=== PATIENT | female | born 1950 | race Caucasian/White ===

== ENCOUNTER 2017-10-18 09:57 | Emergency (ER) | payer MEDICARE, BC ==
[~2017-10-18] VITALS: Ht 154.9 cm; Wt 50.0 kg
[~2017-10-18 09:57] MED LIST: CLONIDINE0.1 MG PO; DOXYCYCLINE100 M3 PO; FLAGYL500 MG PO; FOLIC ACID 11 MG/TA1 PO; K-DUR 10 MEQ T10 MEQ PO; MAALOX MAX + ANT1 ML PO; MACROBID 1100 MG/CAP PO; NEURONTIN100 MG/CAP PO; NO HOME MEDICATIONS; NO RX MEDICATIONS; NORVASC 5MG5 MG/TAB; PRILOSEC10 MG PO; PROTONIX 40MG T40 MG PO; THERAGRAN TAB1 UDTAB PO; THIAMINE 1100 MG/TAB PO; TOPROL XL 25MG25 MG PO; TOPROL XL 50MG50 MG PO; VITAMIN D 1001000 IU PO
[2017-10-18 10:23] LABS: HEMOGLOBIN 12.7 g/dl (12.5-16.0); MEAN CELL VOLUME 93 fl (80.0-100.0); MEAN CORPUSCULAR HEMOGLOBIN 34 pg (27.0-31.0); MEAN CORPUSCULAR HGB CONC 36 g/dl (33.0-37.0); MEAN PLATELET VOLUME 9.2 fl (7.4-10.4); PLATELET COUNT 345 K/mm3 (130-400); RED BLOOD COUNT 3.75 M/mm3 (4.10-5.30); REDCELL DISTRIBUTION WIDTH-CV 11.8 % (11.5-14.5)
[2017-10-18 10:25] LABS: COLLECTION METHOD CATHETER
[2017-10-18 10:29] LABS: INR 0.9 (0.8-3.0); PROTHROMBIN TIME 10.2 SECONDS (9.7-12.8)
[2017-10-18 10:32] LABS: PARTIAL THROMBOPLASTIN TIME 31.3 SECONDS (26.0-37.0)
[2017-10-18 10:37] LABS: ALANINE AMINOTRANSFERASE 27 U/L (9-52); ALBUMIN 4.5 gm/dL (3.5-5.0); ALKALINE PHOSPHATASE 114 U/L (50-136); ANION GAP 24 mmol/L (7-16); AST,SGOT 32 U/L (15-37); BILIRUBIN,TOTAL 0.9 mg/dL (0.0-1.0); BLOOD UREA NITROGEN 60 mg/dL (7-17); C-REACTIVE PROTEIN 1.5 mg/dL (0.0-0.9); CALCIUM 9.2 mg/dL (8.4-10.2); CARBON DIOXIDE 17 mmol/L (22-30); CHLORIDE 94 mmol/L (98-107); CREATININE, serum 1.76 mg/dL (0.52-1.25); GLUCOSE 222 mg/dL (74-106); LIPASE 1168 U/L (23-300); MAGNESIUM 1.9 mg/dL (1.6-2.3); PHOSPHOROUS 2.1 mg/dL (2.5-4.5); SODIUM 135 mmol/L (137-145)
[2017-10-18 10:40] LABS: HYALINE CAST >12 /lpf; MUCOUS Present /lpf; PH 5 (5-8); SQUAMOUS EPITHELIAL 0-2 /hpf; URINE APPEARANCE Hazy; URINE BACTERIA None Seen /hpf; URINE BILIRUBIN Negative (NEGATIVE); URINE BLOOD Negative (NEGATIVE); URINE COLOR Yellow; URINE GLUCOSE Negative (NEGATIVE); URINE KETONE 2+ (NEGATIVE); URINE LEUKOCYTE ESTERASE Negative (NEGATIVE); URINE NITRATE Negative (NEGATIVE); URINE PROTEIN(semi-quant) 1+ (NEGATIVE); URINE RBC 0-2 /hpf
[2017-10-18 10:42] LABS: ALCOHOL(ethanol),MEDICAL < 10 mg/dL
[2017-10-18 10:43] LABS: POTASSIUM 2.9 mmol/L (3.4-5.0)
[2017-10-18 10:45] LABS: BAND 7 % (0-10); LYMPHOCYTE 5 % (20.0-51.0); NEUTROPHILS 76 % (42.0-75.2)
[2017-10-18 10:48] LABS: HYPOCHROMIA 1+; PLATELET ESTIMATE NORMAL (NORMAL)
[2017-10-18 10:50] LABS: TROPONIN-I 0.064 ng/mL (0.000-0.034)
[2017-10-18 12:34] VITALS: BP 119/76; PULSE 106; TEMP 97.5
== END 2017-10-18 12:36 | disposition short-term general hospital (02) ==
LOC: COL.ER 09:57
PROVIDERS: Emergency Medicine
DX: E87.2 Acidosis (principal); K85.90 Acute pancreatitis without necrosis or infection, unspecified; I12.9 Hypertensive chronic kidney disease with stage 1 through stage 4 chronic kidney disease, or unspecified chronic kidney disease; N18.9 Chronic kidney disease, unspecified; R79.89 Other specified abnormal findings of blood chemistry; E87.6 Hypokalemia; F17.210 Nicotine dependence, cigarettes, uncomplicated
CPT/HCPCS: C9113; J2405; J3411; J3480; J7030

== ENCOUNTER 2017-10-21 16:50 | Inpatient (IN) | payer MEDICARE, BC ==
[~2017-10-21] VITALS: Ht 154.9 cm; Wt 52.6 kg
[2017-10-21 17:38] VITALS: BP 172/94; PULSE 90; TEMP 97.7
[2017-10-21] MEDS ORDERED: 00186-0372-20 IH (18:01)
[2017-10-21] MEDS ORDERED: FOLIC ACID 11 MG/TA1 PO (18:02)
[2017-10-21] MEDS ORDERED: TOPROL XL 50MG50 MG PO (18:03)
[2017-10-21] MEDS ORDERED: PROTONIX 40MG T40 MG PO (18:04)
[2017-10-21] MEDS ORDERED: PHOS-NAK1 PDR PO (18:07)
[2017-10-21] MEDS ORDERED: NATURE'S BLEND100 M2 PO (18:08)
[2017-10-22 04:59] VITALS: BP 144/90; PULSE 94; TEMP 97.9
[2017-10-22 06:00] VITALS: BP 144/90; PULSE 94; TEMP 97.9
[2017-10-22 15:53] LABS: BILIRUBIN,TOTAL 0.2 mg/dL (0.0-1.0); CALCIUM 9.1 mg/dL (8.4-10.2); CREATININE, serum 0.93 mg/dL (0.52-1.25); POTASSIUM 3.1 mmol/L (3.4-5.0); TOTAL PROTEIN 7.3 gm/dL (6.4-8.2)
[2017-10-22 16:11] VITALS: BP 111/69; PULSE 98; TEMP 98.3
[2017-10-23 06:00] VITALS: BP 110/66; PULSE 92; TEMP 98.5
[2017-10-23 16:59] VITALS: BP 90/65; PULSE 52; TEMP 97.9
[2017-10-24 05:06] VITALS: BP 102/66; PULSE 90; TEMP 98
[2017-10-24 15:41] VITALS: BP 95/61; PULSE 85; TEMP 98.2
[2017-10-25 06:30] VITALS: BP 97/61; PULSE 80; TEMP 97.5
[2017-10-25 07:05] LABS: BASO % 0.5 % (0.0-2.0); EOS # 0.1 (0.0-0.7); EOS % 1.5 % (0-4.0); GRAN # 2.5 (1.4-6.5); GRAN % 42.1 % (42.2-75.2); HEMATOCRIT 27.9 % (37.0-47.0); HEMOGLOBIN 9.3 g/dl (12.5-16.0); LYMPH # 2.5 (1.2-3.4); MEAN CELL VOLUME 100 fl (80.0-100.0); MEAN CORPUSCULAR HEMOGLOBIN 33 pg (27.0-31.0); MEAN CORPUSCULAR HGB CONC 33 g/dl (33.0-37.0); MEAN PLATELET VOLUME 10.2 fl (7.4-10.4); MONO # 0.8 (0.1-0.6); MONO % 13.4 % (1.7-9.3); PLATELET COUNT 308 K/mm3 (130-400); RED BLOOD COUNT 2.79 M/mm3 (4.10-5.30); REDCELL DISTRIBUTION WIDTH-CV 12.3 % (11.5-14.5)
[2017-10-25 07:21] LABS: ALANINE AMINOTRANSFERASE 29 U/L (9-52); ALBUMIN 3.1 gm/dL (3.5-5.0); ALKALINE PHOSPHATASE 69 U/L (50-136); ANION GAP 8 mmol/L (7-16); AST,SGOT 26 U/L (15-37); BILIRUBIN,TOTAL < 0.1 mg/dL (0.0-1.0); BLOOD UREA NITROGEN 15 mg/dL (7-17); CALCIUM 8.3 mg/dL (8.4-10.2); CARBON DIOXIDE 34 mmol/L (22-30); CHLORIDE 90 mmol/L (98-107); CREATININE, serum 0.74 mg/dL (0.52-1.25); GLUCOSE 90 mg/dL (74-106); POTASSIUM 3.3 mmol/L (3.4-5.0); SODIUM 132 mmol/L (137-145); TOTAL PROTEIN 5.8 gm/dL (6.4-8.2)
[2017-10-25 07:51] LABS: MAGNESIUM 1.3 mg/dL (1.6-2.3); PHOSPHOROUS 5.2 mg/dL (2.5-4.5)
[2017-10-25 14:05] VITALS: BP 99/63; PULSE 70; TEMP 97.6
[2017-10-25 14:25] VITALS: BP 98/58; PULSE 66; TEMP 97.8
[2017-10-25 15:07] VITALS: BP 98/65; PULSE 93; TEMP 97.5
[2017-10-25 16:13] VITALS: BP 96/58; PULSE 96; TEMP 98.2
[2017-10-25 17:34] VITALS: BP 127/77; PULSE 99; TEMP 98.5
[2017-10-26 05:58] VITALS: BP 114/67; PULSE 81; TEMP 97.5
[2017-10-26 15:16] VITALS: BP 121/70; PULSE 91; TEMP 98.2
[2017-10-27 04:47] VITALS: BP 133/84; PULSE 81; TEMP 98.1
[2017-10-27 06:42] LABS: CALCIUM 9.2 mg/dL (8.4-10.2); CREATININE, serum 0.75 mg/dL (0.52-1.25); HEMATOCRIT 27.8 % (37.0-47.0); HEMOGLOBIN 9.3 g/dl (12.5-16.0); MAGNESIUM 1.9 mg/dL (1.6-2.3); POTASSIUM 3.5 mmol/L (3.4-5.0)
[2017-10-27 17:39] VITALS: BP 122/74; PULSE 101; TEMP 98.9
[2017-10-28 05:17] VITALS: BP 113/72; PULSE 98; TEMP 98.2
[2017-10-28 18:20] VITALS: BP 133/79; PULSE 98; TEMP 98.1
[2017-10-29 05:12] VITALS: BP 118/71; PULSE 86; TEMP 98.4
[2017-10-29] MEDS ORDERED: TOPROL XL 25MG25 MG PO (09:38)
[2017-10-29] MEDS ORDERED: TYLENOL 325MG325 MG PO (09:38)
[2017-10-29] MEDS ORDERED: K-DUR20 MEQ PO (09:39)
[2017-10-29] MEDS ORDERED: MAG-OX 400400 MG/TAB PO (09:40)
[2017-10-29] MEDS ORDERED: COLACE 100100 MG/CAP PO (09:40)
== END 2017-10-29 12:30 | DRG 947 ==
PROVIDERS: Internal Medicine
DX: R53.81 Other malaise (principal); K85.20 Alcohol induced acute pancreatitis without necrosis or infection; K22.10 Ulcer of esophagus without bleeding; E44.0 Moderate protein-calorie malnutrition; D62 Acute posthemorrhagic anemia; I10 Essential (primary) hypertension; J44.9 Chronic obstructive pulmonary disease, unspecified; F17.210 Nicotine dependence, cigarettes, uncomplicated; F10.20 Alcohol dependence, uncomplicated; E87.6 Hypokalemia; E83.42 Hypomagnesemia; E83.39 Other disorders of phosphorus metabolism
CPT/HCPCS: 99222-AI; 99232-AI; 99239; J3475

== ENCOUNTER → 2017-11-01 | Outpatient (REF) ==
[~2017-11-01] MED LIST changes: +00186-0372-20 IH; +COLACE 100100 MG/CAP PO; +K-DUR20 MEQ PO; +MAG-OX 400400 MG/TAB PO; +NATURE'S BLEND100 M2 PO; +PHOS-NAK1 PDR PO; +TYLENOL 325MG325 MG PO
[2017-11-01 09:45] LABS: BASO # 0.1 (0.0-0.2); BASO % 0.8 % (0.0-2.0); EOS # 0.1 (0.0-0.7); EOS % 1.9 % (0-4.0); GRAN # 4.7 (1.4-6.5); GRAN % 65.7 % (42.2-75.2); LYMPH # 1.7 (1.2-3.4); LYMPH % 22.9 % (20.0-51.0); MEAN CELL VOLUME 101 fl (80.0-100.0); MEAN CORPUSCULAR HGB CONC 33 g/dl (33.0-37.0); MEAN PLATELET VOLUME 10.1 fl (7.4-10.4); MONO # 0.6 (0.1-0.6); MONO % 8.6 % (1.7-9.3); PLATELET COUNT 402 K/mm3 (130-400); RED BLOOD COUNT 2.78 M/mm3 (4.10-5.30); REDCELL DISTRIBUTION WIDTH-CV 12.4 % (11.5-14.5)
[2017-11-01 09:46] LABS: HEMOGLOBIN 9.2 g/dl (12.5-16.0); MEAN CORPUSCULAR HEMOGLOBIN 33 pg (27.0-31.0)
[2017-11-01 09:57] LABS: CALCIUM 8.8 mg/dL (8.4-10.2); CREATININE, serum 0.74 mg/dL (0.52-1.25); MAGNESIUM 1.8 mg/dL (1.6-2.3); PHOSPHOROUS 4.2 mg/dL (2.5-4.5); POTASSIUM 4.9 mmol/L (3.4-5.0)
[2017-11-02 14:25] LABS: ALBUMIN 3.3 gm/dL (3.5-5.0); BILIRUBIN,TOTAL 0.1 mg/dL (0.0-1.0); TOTAL PROTEIN 6.5 gm/dL (6.4-8.2)
== END ==
LOC: ZLAB.STJ 09:29
PROVIDERS: Family Medicine
DX: E61.2 Magnesium deficiency (principal); R79.89 Other specified abnormal findings of blood chemistry; R68.89 Other general symptoms and signs

== ENCOUNTER 2017-11-22 11:00 | Inpatient (IN) | payer MEDICARE, BC ==
[2017-11-22] VITALS (9 sets, daily range): BP systolic 96–159; BP diastolic 65–95; PULSE 93–110; TEMP 97–97.8
[~2017-11-22] VITALS: Ht 154.9 cm; Wt 49.8 kg
[2017-11-22 11:42] LABS: BASO % 0.1 % (0.0-2.0); EOS % 0.2 % (0-4.0); GRAN # 14.7 (1.4-6.5); GRAN % 85.8 % (42.2-75.2); HEMATOCRIT 39.3 % (37.0-47.0); HEMOGLOBIN 13.4 g/dl (12.5-16.0); LYMPH % 5.7 % (20.0-51.0); MEAN CELL VOLUME 95 fl (80.0-100.0); MEAN CORPUSCULAR HEMOGLOBIN 32 pg (27.0-31.0); MEAN CORPUSCULAR HGB CONC 34 g/dl (33.0-37.0); MEAN PLATELET VOLUME 9.9 fl (7.4-10.4); MONO # 1.3 (0.1-0.6); MONO % 7.5 % (1.7-9.3); PLATELET COUNT 495 K/mm3 (130-400); RED BLOOD COUNT 4.14 M/mm3 (4.10-5.30); REDCELL DISTRIBUTION WIDTH-CV 12.5 % (11.5-14.5)
[2017-11-22 11:47] LABS: BILIRUBIN,TOTAL 0.7 mg/dL (0.0-1.0); C-REACTIVE PROTEIN 0.9 mg/dL (0.0-0.9); CALCIUM 8.4 mg/dL (8.4-10.2); CREATININE, serum 2.53 mg/dL (0.52-1.25); POTASSIUM 3.8 mmol/L (3.4-5.0)
[2017-11-22 12:24] LABS: ARTERIAL BLD GAS O2 SATURATION 95.1 % (92-100); ARTERIAL BLD GAS TCO2 CT 16.9; ARTERIAL BLOOD GAS BASE EXCESS -6.8 (-2-2); ARTERIAL BLOOD GAS HCO3 16.1 meq/L (22-26); ARTERIAL BLOOD GAS PCO2 25.4 mmHg (35-45); ARTERIAL BLOOD GAS PO2 82.5 mmHg (80-100); ARTERIAL BLOOD GAS pH 7.42 (7.35-7.45)
[2017-11-22 12:51] LABS: COLLECTION METHOD CLEAN CATCH
[2017-11-22 13:04] LABS: HYALINE CAST >12 /lpf; MUCOUS Present /lpf; PH 5 (5-8); URINE APPEARANCE Hazy; URINE BACTERIA Rare /hpf; URINE BILIRUBIN Negative (NEGATIVE); URINE BLOOD Negative (NEGATIVE); URINE COLOR Yellow; URINE GLUCOSE Negative (NEGATIVE); URINE KETONE 2+ (NEGATIVE); URINE LEUKOCYTE ESTERASE Trace (NEGATIVE); URINE NITRATE Negative (NEGATIVE); URINE PROTEIN(semi-quant) 1+ (NEGATIVE); URINE RBC 0-2 /hpf; URINE UROBILINOGEN Negative (NEGATIVE)
[2017-11-22 13:37] LABS: TRICYCLIC ANTIDEPRESS URINE NEGATIVE
[2017-11-22] MEDS ORDERED: MULTI VITAMINS1 TAB PO (14:18)
[2017-11-22 15:58] LABS: PROTHROMBIN TIME 10.8 SECONDS (9.7-12.8)
[2017-11-22 16:01] LABS: PARTIAL THROMBOPLASTIN TIME 33.5 SECONDS (26.0-37.0)
[2017-11-22 16:02] LABS: MAGNESIUM 1.7 mg/dL (1.6-2.3)
[2017-11-22 16:03] LABS: ALCOHOL(ethanol),MEDICAL < 10 mg/dL
[2017-11-22 18:17] LABS: CREATININE, serum 1.26 mg/dL (0.52-1.25)
[2017-11-22 18:18] LABS: CALCIUM 5.7 mg/dL (8.4-10.2); POTASSIUM 2.5 mmol/L (3.4-5.0)
[2017-11-22 19:14] LABS: ALBUMIN 3.8 gm/dL (3.5-5.0); BILIRUBIN,TOTAL 0.5 mg/dL (0.0-1.0); CALCIUM 6.7 mg/dL (8.4-10.2); CREATININE, serum 1.38 mg/dL (0.52-1.25); TOTAL PROTEIN 6.8 gm/dL (6.4-8.2)
[2017-11-22 19:17] LABS: POTASSIUM 2.9 mmol/L (3.4-5.0)
[2017-11-22 20:35] LABS: MAGNESIUM 1.7 mg/dL (1.6-2.3); PHOSPHOROUS 3.9 mg/dL (2.5-4.5)
[2017-11-23] VITALS (12 sets, daily range): BP systolic 105–174; BP diastolic 50–109; PULSE 69–111; TEMP 97–99
[2017-11-23 04:04] LABS: MEAN CELL VOLUME 96 fl (80.0-100.0); MEAN CORPUSCULAR HGB CONC 34 g/dl (33.0-37.0); MEAN PLATELET VOLUME 9.7 fl (7.4-10.4); RED BLOOD COUNT 3.48 M/mm3 (4.10-5.30); REDCELL DISTRIBUTION WIDTH-CV 12.7 % (11.5-14.5)
[2017-11-23 04:06] LABS: HEMATOCRIT 33.4 % (37.0-47.0); HEMOGLOBIN 11.2 g/dl (12.5-16.0); MEAN CORPUSCULAR HEMOGLOBIN 32 pg (27.0-31.0)
[2017-11-23 04:07] LABS: PLATELET COUNT 290 K/mm3 (130-400)
[2017-11-23 04:15] LABS: ALBUMIN 3.8 gm/dL (3.5-5.0); BILIRUBIN,TOTAL 0.5 mg/dL (0.0-1.0); CALCIUM 8.3 mg/dL (8.4-10.2); CREATININE, serum 1.07 mg/dL (0.52-1.25); MAGNESIUM 2.2 mg/dL (1.6-2.3); POTASSIUM 3.6 mmol/L (3.4-5.0)
[2017-11-23 04:24] LABS: BAND 8 % (0-10); LYMPHOCYTE 14 % (20.0-51.0); NEUTROPHILS 70 % (42.0-75.2)
[2017-11-23 04:25] LABS: PLATELET ESTIMATE NORMAL (NORMAL)
[2017-11-23 04:30] LABS: CREATININE, serum 1.07 mg/dL (0.52-1.25); FRACTIONAL EXCRETION OF NA+ 6.8 %
[2017-11-24] VITALS (7 sets, daily range): BP systolic 117–142; BP diastolic 58–79; PULSE 65–100; TEMP 98.1–98.9
[2017-11-24 06:06] LABS: BASO # 0.1 (0.0-0.2); BASO % 0.9 % (0.0-2.0); EOS # 0.1 (0.0-0.7); EOS % 1.3 % (0-4.0); GRAN # 2.5 (1.4-6.5); GRAN % 46.6 % (42.2-75.2); LYMPH # 2.2 (1.2-3.4); LYMPH % 39.7 % (20.0-51.0); MEAN CELL VOLUME 96 fl (80.0-100.0); MEAN CORPUSCULAR HGB CONC 34 g/dl (33.0-37.0); MEAN PLATELET VOLUME 10.2 fl (7.4-10.4); MONO # 0.6 (0.1-0.6); MONO % 11.3 % (1.7-9.3); PLATELET COUNT 216 K/mm3 (130-400); RED BLOOD COUNT 2.77 M/mm3 (4.10-5.30); REDCELL DISTRIBUTION WIDTH-CV 12.2 % (11.5-14.5)
[2017-11-24 06:21] LABS: HEMATOCRIT 26.5 % (37.0-47.0); MEAN CORPUSCULAR HEMOGLOBIN 32 pg (27.0-31.0)
[2017-11-24 06:23] LABS: CALCIUM 8.1 mg/dL (8.4-10.2); CREATININE, serum 0.64 mg/dL (0.52-1.25)
[2017-11-24 06:29] LABS: POTASSIUM 2.8 mmol/L (3.4-5.0)
[2017-11-24] MEDS ORDERED: ZOFRAN 4MG T4 MG/TAB PO (15:39)
[2017-11-24] MEDS ORDERED: TUMS500 MG PO (15:40)
[2017-11-24] MEDS ORDERED: PROTONIX 40MG T40 MG PO (15:41)
[2017-11-24] MEDS ORDERED: NATURAL IRON65 MG PO (15:46)
[2017-11-24] MEDS ORDERED: K-DUR20 MEQ PO (15:46)
[2017-11-24] MEDS ORDERED: THIAMINE 1100 MG/TAB PO (15:46)
== END 2017-11-24 16:53 | DRG 682 ==
LOC: COL.ER 11:00 → ICU 13:03 → MEDICAL 13:03
PROVIDERS: Family Medicine; Hospitalist; Internal Medicine Gastroenterology; Nurse Practitioner Family
PROC: 0DJ08ZZ Inspection of Upper Intestinal Tract, Via Natural or Artificial Opening Endoscopic (ICD-10-PCS; principal; 2017-11-22 16:00)
DX: N17.9 Acute kidney failure, unspecified (principal); K22.11 Ulcer of esophagus with bleeding; E87.2 Acidosis; E44.0 Moderate protein-calorie malnutrition; Z66 Do not resuscitate; I10 Essential (primary) hypertension; K21.0 Gastro-esophageal reflux disease with esophagitis; F17.210 Nicotine dependence, cigarettes, uncomplicated; E87.6 Hypokalemia; F10.10 Alcohol abuse, uncomplicated; E83.42 Hypomagnesemia; E83.51 Hypocalcemia; K29.20 Alcoholic gastritis without bleeding
CPT/HCPCS: 99223-AI; C9113; J0610; J2250; J2405; J2543; J3010; J3475; J3480; J7030; J7120

== ENCOUNTER → 2017-11-26 | Outpatient (REF) ==
[~2017-11-26] MED LIST changes: +MULTI VITAMINS1 TAB PO; +NATURAL IRON65 MG PO; +TUMS500 MG PO; +ZOFRAN 4MG T4 MG/TAB PO
[2017-11-26 09:33] LABS: BASO % 0.5 % (0.0-2.0); EOS # 0.2 (0.0-0.7); EOS % 2.1 % (0-4.0); GRAN # 3.8 (1.4-6.5); LYMPH # 2.6 (1.2-3.4); LYMPH % 34.1 % (20.0-51.0); MEAN CELL VOLUME 95 fl (80.0-100.0); MEAN CORPUSCULAR HGB CONC 34 g/dl (33.0-37.0); MEAN PLATELET VOLUME 10.6 fl (7.4-10.4); MONO # 0.9 (0.1-0.6); MONO % 11.9 % (1.7-9.3); PLATELET COUNT 304 K/mm3 (130-400); RED BLOOD COUNT 3.53 M/mm3 (4.10-5.30); REDCELL DISTRIBUTION WIDTH-CV 12.1 % (11.5-14.5)
[2017-11-26 09:34] LABS: HEMATOCRIT 33.5 % (37.0-47.0); HEMOGLOBIN 11.5 g/dl (12.5-16.0); MEAN CORPUSCULAR HEMOGLOBIN 33 pg (27.0-31.0)
[2017-11-26 09:41] LABS: CREATININE, serum 0.69 mg/dL (0.52-1.25); POTASSIUM 4.1 mmol/L (3.4-5.0)
== END ==
LOC: ZLAB.STJ 09:27
PROVIDERS: Family Medicine
DX: E87.6 Hypokalemia (principal); I10 Essential (primary) hypertension

== ENCOUNTER → 2018-02-07 | Outpatient (CLI) | payer MEDICARE, BC ==
[2018-02-07 12:13] LABS: COLLECTION METHOD CLEAN CATCH
[2018-02-07 12:24] LABS: BASO # 0.1 (0.0-0.2); BASO % 1.2 % (0.0-2.0); EOS # 0.1 (0.0-0.7); EOS % 2.7 % (0-4.0); GRAN # 1.8 (1.4-6.5); HEMATOCRIT 39.5 % (37.0-47.0); HEMOGLOBIN 13.5 g/dl (12.5-16.0); LYMPH # 1.8 (1.2-3.4); LYMPH % 44.2 % (20.0-51.0); MEAN CELL VOLUME 92 fl (80.0-100.0); MEAN CORPUSCULAR HEMOGLOBIN 32 pg (27.0-31.0); MEAN CORPUSCULAR HGB CONC 34 g/dl (33.0-37.0); MEAN PLATELET VOLUME 10.1 fl (7.4-10.4); MONO # 0.4 (0.1-0.6); MONO % 8.7 % (1.7-9.3); PLATELET COUNT 281 K/mm3 (130-400); RED BLOOD COUNT 4.29 M/mm3 (4.10-5.30); REDCELL DISTRIBUTION WIDTH-CV 12.2 % (11.5-14.5)
[2018-02-07 12:26] LABS: MUCOUS Present /lpf; PH 6 (5-8); URINE APPEARANCE Clear; URINE BACTERIA Rare /hpf; URINE BILIRUBIN Negative (NEGATIVE); URINE BLOOD Negative (NEGATIVE); URINE COLOR Straw; URINE GLUCOSE Negative (NEGATIVE); URINE KETONE Negative (NEGATIVE); URINE LEUKOCYTE ESTERASE Negative (NEGATIVE); URINE NITRATE Negative (NEGATIVE); URINE PROTEIN(semi-quant) Negative (NEGATIVE); URINE RBC None Seen /hpf; URINE UROBILINOGEN Negative (NEGATIVE)
[2018-02-07 12:36] LABS: ALBUMIN 4.5 gm/dL (3.5-5.0); BILIRUBIN,TOTAL 0.2 mg/dL (0.0-1.0); CALCIUM 9.2 mg/dL (8.4-10.2); CREATININE, serum 0.76 mg/dL (0.52-1.25); POTASSIUM 4.3 mmol/L (3.4-5.0); TOTAL PROTEIN 8.2 gm/dL (6.4-8.2)
== END ==
LOC: ZLAB.STJ 12:07
PROVIDERS: Family Medicine
DX: I10 Essential (primary) hypertension (principal); D64.9 Anemia, unspecified; R35.0 Frequency of micturition

== ENCOUNTER → 2018-07-08 | Outpatient (CLI) | payer MEDICARE, BC | LOC: COL.RAD 09:11 | DX: R94.5 Abnormal results of liver function studies (principal) ==

== ENCOUNTER → 2018-07-18 | Outpatient (CLI) | payer MEDICARE, BC | LOC: COL.RAD 08:46 | DX: R74.8 Abnormal levels of other serum enzymes (principal) | CPT/HCPCS: A9503 ==

== ENCOUNTER 2019-05-12 14:32 | Emergency (ER) | payer MEDICARE, BC ==
[~2019-05-12] VITALS: Ht 154.9 cm; Wt 50.0 kg
[~2019-05-12 14:32] MED LIST changes: +KLOR-CON M1010 MEQ PO; +METOPROL; +NORVASC 5MG5 MG/TAB PO; +TOBRADEX EYE DRO5 ML OD
[2019-05-12 16:22] LABS: BASO # 0.1 (0.0-0.2); BASO % 0.8 % (0.0-2.0); EOS # 0.1 (0.0-0.7); EOS % 1.3 % (0-4.0); GRAN # 3.8 (1.4-6.5); LYMPH # 1.8 (1.2-3.4); LYMPH % 28.1 % (20.0-51.0); MEAN CELL VOLUME 101 fl (80.0-100.0); MEAN CORPUSCULAR HEMOGLOBIN 35 pg (27.0-31.0); MEAN CORPUSCULAR HGB CONC 35 g/dl (33.0-37.0); MONO # 0.7 (0.1-0.6); MONO % 10.6 % (1.7-9.3); PLATELET COUNT 244 K/mm3 (130-400); RED BLOOD COUNT 3.43 M/mm3 (4.10-5.30)
[2019-05-12 16:30] LABS: HEMATOCRIT 34.7 % (37.0-47.0)
[2019-05-12 16:34] LABS: ALANINE AMINOTRANSFERASE 41 U/L (9-52); ALKALINE PHOSPHATASE 194 U/L (50-136); ANION GAP 12 mmol/L (7-16); AST,SGOT 82 U/L (15-37); BILIRUBIN,TOTAL 0.7 mg/dL (0.0-1.0); BLOOD UREA NITROGEN 8 mg/dL (7-17); CALCIUM 8.4 mg/dL (8.4-10.2); CARBON DIOXIDE 28 mmol/L (22-30); CHLORIDE 96 mmol/L (98-107); CREATINE KINASE 45 U/L (30-135); CREATININE, serum 0.78 (0.52-1.25); GLUCOSE 97 mg/dL (74-106); MAGNESIUM 1.2 mg/dL (1.6-2.3); PHOSPHOROUS 3.1 mg/dL (2.5-4.5); SODIUM 136 mmol/L (137-145); TOTAL PROTEIN 7.4 gm/dL (6.4-8.2)
[2019-05-12 16:37] LABS: ALCOHOL(ethanol),MEDICAL < 10 mg/dL; C-REACTIVE PROTEIN 0.5 mg/dL (0.0-0.9); POTASSIUM 2.8 mmol/L (3.4-5.0)
[2019-05-12 16:39] LABS: COLLECTION METHOD CLEAN CATCH
[2019-05-12 16:53] LABS: ERYTHROCYTE SEDIMENTATION RATE 26 mm/hr (0-30)
[2019-05-12 17:09] LABS: PH 7 (5-8); URINE APPEARANCE Clear; URINE BACTERIA Rare /hpf; URINE BILIRUBIN Negative (NEGATIVE); URINE BLOOD Negative (NEGATIVE); URINE COLOR Yellow; URINE GLUCOSE Negative (NEGATIVE); URINE KETONE Negative (NEGATIVE); URINE LEUKOCYTE ESTERASE Negative (NEGATIVE); URINE NITRATE Negative (NEGATIVE); URINE PROTEIN(semi-quant) Negative (NEGATIVE); URINE RBC 0-2 /hpf; URINE UROBILINOGEN Negative (NEGATIVE)
[2019-05-12] MEDS ORDERED: MAG-OX 400400 MG/TAB PO (17:51)
[2019-05-12] MEDS ORDERED: K-DUR20 MEQ PO (17:51)
[2019-05-12 18:13] VITALS: BP 140/88; PULSE 77; TEMP 98
== END 2019-05-12 18:22 | disposition home or self-care (01) ==
LOC: COL.ER 14:32
PROVIDERS: Emergency Medicine
DX: E87.6 Hypokalemia (principal); E83.42 Hypomagnesemia; R53.1 Weakness
CPT/HCPCS: J7030

== ENCOUNTER → 2019-07-24 | Outpatient (CLI) | payer MEDICARE, BC ==
[2019-07-24 16:56] LABS: BASO # 0.1 (0.0-0.2); BASO % 0.7 % (0.0-2.0); EOS % 0.1 % (0-4.0); GRAN # 6.1 (1.4-6.5); GRAN % 81.8 % (42.2-75.2); HEMOGLOBIN 10.6 g/dl (12.5-16.0); LYMPH # 0.5 (1.2-3.4); LYMPH % 7.2 % (20.0-51.0); MEAN CELL VOLUME 100 fl (80.0-100.0); MEAN CORPUSCULAR HEMOGLOBIN 34 pg (27.0-31.0); MEAN CORPUSCULAR HGB CONC 34 g/dl (33.0-37.0); MEAN PLATELET VOLUME 9.9 fl (7.4-10.4); MONO # 0.7 (0.1-0.6); MONO % 9.5 % (1.7-9.3); PLATELET COUNT 297 K/mm3 (130-400); RED BLOOD COUNT 3.09 M/mm3 (4.10-5.30); REDCELL DISTRIBUTION WIDTH-CV 14.5 % (11.5-14.5)
[2019-07-24 16:57] LABS: HEMATOCRIT 30.9 % (37.0-47.0)
[2019-07-24 17:11] LABS: ALBUMIN 3.6 gm/dL (3.5-5.0); CALCIUM 8.8 mg/dL (8.4-10.2); CREATININE, serum 1.81 (0.52-1.25); MAGNESIUM 1.5 mg/dL (1.6-2.3); POTASSIUM 3.9 mmol/L (3.4-5.0); TOTAL PROTEIN 6.8 gm/dL (6.4-8.2)
== END ==
LOC: ZCOL.LAB 16:25
PROVIDERS: Internal Medicine
DX: E86.0 Dehydration (principal)

== ENCOUNTER → 2019-08-07 | Outpatient (CLI) | payer MEDICARE, BC | LOC: ZCOL.LAB 14:28 | DX: E83.42 Hypomagnesemia (principal) ==

== ENCOUNTER → 2020-07-16 | Outpatient (CLI) | payer MEDICARE, BC ==
[~2020-07-16] MED LIST changes: +CEPHALEXIN500 M1 PO; +COZAAR 50MG50 MG/TAB PO; +DUO-KAPS1 CAP PO; +K-TAB20 PO
[2020-07-16 17:12] LABS: ALBUMIN 4.5 gm/dL (3.5-5.0); BILIRUBIN,TOTAL 0.8 mg/dL (0.0-1.0); CALCIUM 9.5 mg/dL (8.4-10.2); CREATININE, serum 0.95 (0.52-1.25); POTASSIUM 4.6 mmol/L (3.4-5.0); TOTAL PROTEIN 8.4 gm/dL (6.4-8.2)
== END ==
LOC: ZCOL.LAB 15:09
PROVIDERS: Family Medicine
DX: E87.1 Hypo-osmolality and hyponatremia (principal); F10.288 Alcohol dependence with other alcohol-induced disorder

== ENCOUNTER 2020-07-20 21:55 | Observation (INO) | payer MEDICARE, BC ==
[~2020-07-20] VITALS: Ht 154.9 cm; Wt 56.8 kg
[~2020-07-20 21:55] MED LIST changes: -CEPHALEXIN500 M1 PO; -COZAAR 50MG50 MG/TAB PO; -DUO-KAPS1 CAP PO; -K-TAB20 PO
[2020-07-20 22:31] LABS: BASO % 0.1 % (0.0-2.0); EOS % 0.1 % (0-4.0); GRAN # 5.9 (1.4-6.5); GRAN % 78.1 % (42.2-75.2); HEMATOCRIT 41.3 % (37.0-47.0); HEMOGLOBIN 13.8 g/dl (12.5-16.0); LYMPH # 0.7 (1.2-3.4); MEAN CELL VOLUME 97 fl (80.0-100.0); MEAN CORPUSCULAR HEMOGLOBIN 32 pg (27.0-31.0); MEAN CORPUSCULAR HGB CONC 33 g/dl (33.0-37.0); MEAN PLATELET VOLUME 10.2 fl (7.4-10.4); MONO % 12.6 % (1.7-9.3); PLATELET COUNT 230 K/mm3 (130-400); RED BLOOD COUNT 4.26 M/mm3 (4.10-5.30); REDCELL DISTRIBUTION WIDTH-CV 12.9 % (11.5-14.5)
[2020-07-20 22:42] LABS: ALBUMIN 5.1 gm/dL (3.5-5.0); BILIRUBIN,TOTAL 0.8 mg/dL (0.0-1.0); CALCIUM 9.9 mg/dL (8.4-10.2); CREATININE, serum 1.15 (0.52-1.25); POTASSIUM 4.2 mmol/L (3.4-5.0); TOTAL PROTEIN 9.7 gm/dL (6.4-8.2)
[2020-07-20 23:02] LABS: COLLECTION METHOD CLEAN CATCH
[2020-07-20 23:13] LABS: PH 6 (5-8); URINE APPEARANCE Cloudy; URINE BACTERIA Many /hpf; URINE BILIRUBIN Negative (NEGATIVE); URINE BLOOD 1+ (NEGATIVE); URINE COLOR Yellow; URINE GLUCOSE Negative (NEGATIVE); URINE KETONE 2+ (NEGATIVE); URINE LEUKOCYTE ESTERASE 2+ (NEGATIVE); URINE NITRATE Negative (NEGATIVE); URINE PROTEIN(semi-quant) 1+ (NEGATIVE); URINE UROBILINOGEN Negative (NEGATIVE)
[2020-07-21] VITALS (13 sets, daily range): BP systolic 90–149; BP diastolic 46–96; PULSE 74–116; TEMP 97.5–98.9
--- NOTE | 2020-07-21 01:45 | NUR ---
Patient snoring, respirations even and unlabored @16 per minute, recieved ativan in ED- patient is asleep and unable to answer questions at this time, received updated med list from [facility], telemetry in use, CIWA protocol in use, VS stable, will continue to monitor.
[2020-07-21] MEDS ORDERED: COZAAR 50MG50 MG/TAB PO (03:11)
[2020-07-21] MEDS ORDERED: TYLENOL 325MG325 MG PO (03:12)
[2020-07-21] MEDS ORDERED: ZOFRAN 4MG T4 MG/TAB PO (03:13)
--- NOTE | 2020-07-21 06:22 | NUR ---
Resting quietly, respirations even and unlabored, will awaken with verbal stimuli but quickly falls back asleep, aware, CIWA protocol continues, VS stable, telemetry in use, will continue to monitor.
--- NOTE | 2020-07-21 08:58 | NUR ---
IV FLUIDS INFUSING, PT AOX4, STEADY ON HER FEET, REPORTS USING A WALKER AT [facility], DID NOT REQUIRE ATIVAN FOR 0800 EVALUATION, PT CALL LIGHT WITHIN REACH, DRANK HER BROTH AND DENIED N/V. BOTH IV SITES CDI W/O ERYTHEMA, BED ALARM SET, PT VERY PLEASANT, NO OTHER NEEDS
--- NOTE | 2020-07-21 09:56 | NUR ---
Patient used call light to get assistance going to the bathroom. She was a little unsteady, but did not complain of any pain. After care she went back to lay in bed.
--- NOTE | 2020-07-21 10:04 | NUR ---
Patient is laying in bed, free of pain or distress. She did ask for her phone so that she could speak with her children. Patient cell phone was retrieved out of her bag. She did not have any further request at this time.
--- NOTE | 2020-07-21 11:34 | NUR ---
SW met with patient to conduct intake evaluation. Patient lives at [facility] alone. Her DPOAs are Unruly Hancock (P# [phone]) and Harsh Glover (P# [phone]). Patient's PCP is Dr. Callejas, and she uses [facility] for medications. Patient requires no assistance with ADLS and uses a walker for mobility. Patient denies concerns affording medication. Patient plans to return to [facility] when discharged. Please fax record updates to [facility]. DEWAYNE will continue to follow.
--- NOTE | 2020-07-21 17:37 | NUR ---
PT PLEASANT, AOX4, HAS NOT BEEN SCORING SINCE EARLY IN AM, PT HAS A STEADY GAIT WITH A WALKER, USES CALL LIGHT WHEN NEEDING TO GET UP, PT EAGER FOR DISCHARGE, IV FLUIDS INFUSING, CALL LIGHT AT BEDSIDE, PT TOLERATING CLD WELL, NO N/V. NO OTHER NEEDS.
--- NOTE | 2020-07-21 19:22 | NUR ---
Awake, alert, oriented x 4, CIWA protocol in use, call renner w/i reach, ambulating in room w/o issue, telemetry in use running SR, tolerating clear liquid diet. updated on plan of care
[2020-07-22 01:53] VITALS: BP 120/79; PULSE 92; TEMP 98
[2020-07-22 04:01] VITALS: BP 116/70; PULSE 79; TEMP 97.7
[2020-07-22 05:34] VITALS: BP 132/81; PULSE 86; TEMP 98.1
--- NOTE | 2020-07-22 06:00 | NUR ---
Resting quietly, no c/o at this time, will continue to monitor.
[2020-07-22 07:44] LABS: BASO # 0.1 (0.0-0.2); BASO % 0.7 % (0.0-2.0); EOS # 0.1 (0.0-0.7); EOS % 1.2 % (0-4.0); GRAN # 3.6 (1.4-6.5); GRAN % 53.6 % (42.2-75.2); LYMPH # 2.4 (1.2-3.4); LYMPH % 35.9 % (20.0-51.0); MEAN CELL VOLUME 101 fl (80.0-100.0); MEAN CORPUSCULAR HEMOGLOBIN 32 pg (27.0-31.0); MEAN CORPUSCULAR HGB CONC 32 g/dl (33.0-37.0); MEAN PLATELET VOLUME 10.6 fl (7.4-10.4); MONO # 0.6 (0.1-0.6); MONO % 8.5 % (1.7-9.3); PLATELET COUNT 161 K/mm3 (130-400); RED BLOOD COUNT 3.65 M/mm3 (4.10-5.30); REDCELL DISTRIBUTION WIDTH-CV 12.6 % (11.5-14.5)
[2020-07-22 07:57] VITALS: BP 124/75; PULSE 77; TEMP 98.1
--- NOTE | 2020-07-22 07:58 | NUR ---
PT SEEMS FRUSTRATED WITH BEING IN HOSPITAL IN AM, AOX4, PT DRINKING BROTH WHEN ENTERING, NO TREMORS OR DIAPHORESIS NOTED, NO OTHER NEEDS
[2020-07-22 07:59] LABS: ALBUMIN 3.6 gm/dL (3.5-5.0); BILIRUBIN,TOTAL 0.5 mg/dL (0.0-1.0); CREATININE, serum 0.59 (0.52-1.25); MAGNESIUM 1.3 mg/dL (1.6-2.3); TOTAL PROTEIN 6.8 gm/dL (6.4-8.2)
[2020-07-22 08:03] LABS: HEMOGLOBIN 11.8 g/dl (12.5-16.0); POTASSIUM 2.7 mmol/L (3.4-5.0)
--- NOTE | 2020-07-22 08:09 | NUR ---
CRITICAL POTASSIUM REPORTED TO JAYDA RINCON.
--- NOTE | 2020-07-22 10:20 | NUR ---
Initial visit; Patient angelina spicered Creel Selector for looking in on her and offering God's blessings.
[2020-07-22] MEDS ORDERED: DUO-KAPS1 CAP PO (10:34)
[2020-07-22] MEDS ORDERED: MAG-OX 400400 MG/TAB PO (10:35)
[2020-07-22] MEDS ORDERED: FOLIC ACID 11 MG/TA1 PO (10:35)
[2020-07-22] MEDS ORDERED: THIAMINE 1100 MG/TAB PO (10:35)
[2020-07-22] MEDS ORDERED: ZOFRAN 4MG T4 MG/TAB PO (10:36)
[2020-07-22] MEDS ORDERED: K-TAB20 PO (10:36)
[2020-07-22] MEDS ORDERED: CEPHALEXIN500 M1 PO (10:39)
--- NOTE | 2020-07-22 11:30 | NUR ---
WU care supervised by this instructor, agree with documentation.
[2020-07-22 11:56] VITALS: BP 130/77; PULSE 75; TEMP 97.9
--- NOTE | 2020-07-22 12:53 | NUR ---
The patient is ready to d/c today. DEWAYNE followed up with the patient. The patient reports that she is in assisted living over at [facility], not [place]. DEWAYNE notified and faxed updates to Danielle at [facility]. Danielle reports that they will require a COVID test. DEWAYNE informed the hospitalist and her RN. DEWAYNE contacted and updated the patient's DPOA-HC, Harsh. He was agreeable to the plan.
--- NOTE | 2020-07-22 13:17 | NUR ---
Danielle, at [facility], reports that they are able to take the patient back today. The patient's COVID results were negative and DEWAYNE faxed them to [facility]. The patient is to discharge today, 07/22, back to [facility]. Transportation was scheduled around [id number], via [facility]. DEWAYNE informed the patient, her RN, and the patient's son (Harsh) over the phone. They were all agreeable to the time. No additional needs at this time.
--- NOTE | 2020-07-22 13:53 | NUR ---
left message for nurse taking pt at [facility], unable to give report, left call back number.
--- NOTE | 2020-07-22 15:00 | NUR ---
discharge education provided, iv sites removed, tele removed no other needs
--- NOTE | 2020-07-22 15:08 | NUR ---
DISCHARGE EDUCATION PROVIDE,D IV'S REMOVED, PT BELONGINGS , PT ESCORTED OUT WITH WAYNE ARCE
== END 2020-07-22 15:00 ==
LOC: COL.ER 21:55 → MEDICAL 07-21 01:04
PROVIDERS: Emergency Medicine; Family Medicine; ADMIT Student in an Organized Health Care Education/Training Program
DX: N39.0 Urinary tract infection, site not specified (principal); B96.1 Klebsiella pneumoniae [K. pneumoniae] as the cause of diseases classified elsewhere; R65.10 Systemic inflammatory response syndrome (SIRS) of non-infectious origin without acute organ dysfunction; F10.10 Alcohol abuse, uncomplicated; E87.6 Hypokalemia; E83.42 Hypomagnesemia; R00.0 Tachycardia, unspecified; I10 Essential (primary) hypertension; Z20.822 Contact with and (suspected) exposure to COVID-19; N17.9 Acute kidney failure, unspecified; Z66 Do not resuscitate; N20.0 Calculus of kidney; R53.81 Other malaise; E46 Unspecified protein-calorie malnutrition; G62.9 Polyneuropathy, unspecified; K21.9 Gastro-esophageal reflux disease without esophagitis; K29.70 Gastritis, unspecified, without bleeding; K44.9 Diaphragmatic hernia without obstruction or gangrene; Z79.899 Other long term (current) drug therapy; Z87.891 Personal history of nicotine dependence
CPT/HCPCS: C9113; G0378; J0696; J1644; J1885; J2060; J2405; J2765; J3411; J3475; J7030; J7120; Q9967

== ENCOUNTER 2023-08-02 09:03 | Observation (INO) | payer MEDICARE, BC ==
[~2023-08-02] VITALS: Ht 154.9 cm; Wt 46.4 kg
[~2023-08-02 09:03] MED LIST changes: +CEPHALEXIN500 M1 PO; +COZAAR 50MG50 MG/TAB PO; +DUO-KAPS1 CAP PO; +K-TAB20 PO
[2023-08-02] MEDS ORDERED: LR 1,000 ML IV ONE (09:45)
[2023-08-02 09:56] LABS: BASO % 0.6 % (0.0-2.0); EOS # 0.1 K/mm3 (0.0-0.7); GRAN # 3.1 K/mm3 (1.4-6.5); GRAN % 57.9 % (42.2-75.2); HEMATOCRIT 38.3 % (37.0-47.0); HEMOGLOBIN 13.5 g/dl (12.5-16.0); LYMPH # 1.4 K/mm3 (1.2-3.4); LYMPH % 26.6 % (20.0-51.0); MEAN CELL VOLUME 110 fl (80.0-100.0); MEAN CORPUSCULAR HEMOGLOBIN 39 pg (27-31); MEAN CORPUSCULAR HGB CONC 35 g/dl (33.0-37.0); MEAN PLATELET VOLUME 10.3 fl (7.4-10.4); MONO # 0.7 K/mm3 (0.1-0.6); MONO % 12.7 % (1.7-9.3); PLATELET COUNT 165 K/mm3 (130-400); RED BLOOD COUNT 3.48 M/mm3 (4.10-5.30); REDCELL DISTRIBUTION WIDTH-CV 12.9 % (11.5-14.5)
[2023-08-02 10:19] LABS: ALBUMIN 3.1 g/dL (3.4-4.8); BILIRUBIN,TOTAL 1.2 mg/dL (0.2-1.2); CALCIUM 9.3 mg/dL (8.4-10.2); CREATININE, serum 1.81 mg/dL (0.57-1.11); POTASSIUM 3.3 mEq/L (3.5-4.5); TOTAL PROTEIN 6.8 g/dl (6.2-8.1)
[2023-08-02 10:26] LABS: TROPONIN-I 0.046 ng/mL (0.00-0.033)
[2023-08-02 11:05] LABS: COLLECTION METHOD CATHETER
[2023-08-02 11:14] LABS: PH 5.5 (5.0-8.5); URINE APPEARANCE CLEAR (CLEAR/HAZY); URINE BLOOD NEGATIVE (NEGATIVE); URINE COLOR Dark Yellow (YELLOW); URINE GLUCOSE NEGATIVE (NEGATIVE); URINE KETONE TRACE (NEGATIVE); URINE NITRATE NEGATIVE (NEGATIVE); URINE PROTEIN(semi-quant) TRACE (NEGATIVE); URINE UROBILINOGEN 0.2 E.U/dL (0.2-1.0)
[2023-08-02] MEDS ORDERED: NS 1,000 ML IV ONE (11:15)
[2023-08-02 11:37] LABS: URINE RBC 0-2 /hpf (0-2)
[2023-08-02 11:38] LABS: URINE BACTERIA OCCASIONAL /hpf (NONE SEEN)
[2023-08-02 11:39] LABS: URINE WBC 0-2 /hpf (0-2)
[2023-08-02 13:46] LABS: CALCIUM 8.8 mg/dL (8.4-10.2); CREATININE, serum 1.46 mg/dL (0.57-1.11); POTASSIUM 4.1 mEq/L (3.5-4.5)
[2023-08-02 14:02] LABS: TROPONIN-I 0.04 ng/mL (0.00-0.033)
[2023-08-02] MEDS ORDERED: K-DUR 10 MEQ T10 MEQ PO (16:12)
[2023-08-02] MEDS ORDERED: NS 1,000 ML IV SCH (16:15)
[2023-08-02] MEDS ORDERED: Ondansetron 4 MG/2 ML VIAL IV PRN (16:15)
[2023-08-02] MEDS ORDERED: Acetaminophen 500 MG TAB PO PRN (16:15)
[2023-08-02] MEDS ORDERED: MILK OF MA400 MG/52 PO (16:16)
[2023-08-02] MEDS ORDERED: ZOFRAN 4MG T4 MG/TAB PO (16:17)
[2023-08-02] MEDS ORDERED: TYLENOL 325MG325 MG PO (16:17)
[2023-08-02 17:53] VITALS: BP 137/95; PULSE 114; TEMP 97.7
[2023-08-02 17:58] VITALS: BP_SYST 137
--- NOTE | 2023-08-02 17:58 | NUR ---
Pt arrived from ED. [place] Pt to room. Completed Pt assessment. A&Ox4. Tachycardic, otherwise Pt has VSS. S1S2. Clear lungs, ABD is rounded, soft, non-tender with audible bowel sounds. Pt denies pain, headache, dizziness, n/v. Palpable pulses in all extremities - with good strength. Pt ambulated to bedside commode - unsteady on feet and unsteady gait. Pt ordered dinner. No further needs at this time. Call light in reach and bed alarm on.
--- NOTE | 2023-08-02 18:04 | NUR ---
THIS RN CONTACTED DR. VENCES TO NOTIFY HER THAT PATIENT HAS BEEN TAACHYCARDIC UP INTO THE 130s. THIS RN ASKED IF SHE WOULD LIKE US TO PLACE THE PATIENT ON TELEMETRY. DR. VENCES REQUESTED THAT WE BOLUS THE PATIENT THE REST OF HER FLUIDS THAT ARE RUNNING NOW AND RECHECK VITALS FOLLOWING ITS COMPLETION. SHE WANTS TO WAIT TO PLACE THE PATIENT ON TELE UNTIL AFTER THIS. ABIDA CRABTREE BEGAN HER BOLUS. WILL CONTINUE TO FOLLOW.
[2023-08-02 19:57] VITALS: BP 146/93; PULSE 92; TEMP 98.1
[2023-08-02] MEDS ORDERED: Thiamine 100 MG TAB PO SCH (21:00)
[2023-08-02] MEDS ORDERED: Magnesium Oxide 400 MG TAB PO SCH (21:00)
[2023-08-02 21:11] VITALS: BP_SYST 146
--- NOTE | 2023-08-02 21:25 | NUR ---
patient lying in bed, alert and oriented x4. denies chest pain and shortness of breath. reports a headache rated 2/10, tylenol given per request. IV in RF is patent, site has some old drainage, intact and clean with NS running at 125 ml/hr. excoriated bottom noted, blanchable redness with pinky nail sized skin breakdown, barrier cream applied. pt has no further needs, questions, or concerns at this time. fall precautions in place, call light within reach. will continue to monitor.
[2023-08-02 23:30] VITALS: BP 123/80; PULSE 79; TEMP 98.2
[2023-08-03] VITALS (12 sets, daily range): BP systolic 99–152; BP diastolic 62–93; PULSE 75–113; TEMP 97.5–98.7
[2023-08-03 07:09] LABS: CALCIUM 8.1 mg/dL (8.4-10.2); CREATININE, serum 0.91 mg/dL (0.57-1.11); MAGNESIUM 1.6 mg/dL (1.6-2.6); POTASSIUM 3.1 mEq/L (3.5-4.5)
[2023-08-03] MEDS ORDERED: Magnesium Sulfate 8% 50 ML IV ONE (08:30)
[2023-08-03] MEDS ORDERED: Multivitamin TAB PO SCH (09:00)
[2023-08-03] MEDS ORDERED: Folic Acid 1 MG TAB PO SCH (09:00)
--- NOTE | 2023-08-03 10:30 | NUR ---
PT LAYING IN BED UPON ENTERING, PAN WASHER AT BEDSIDE. ASSESSMENT DONE, MEDS GIVEN PER ORDER. MEDS CRUSHED AND GIVEN IN PUDDING. PT DENIES PAIN AT THIS TIME. NS RUNNING AT 75 MLS/HR IN RIGHT HAND. PT DENIES NEEDS. BED IN LOWEST POSITION, CALL LIGHT IN REACH, BED ALARM ON
--- NOTE | 2023-08-03 10:41 | NUR ---
welfare worker met with patient to discuss discharge planning. She reports to live at [facility]. She states she sees Dr. Callejas for PCP needs and obtains medications from [facility] for assistance. She has no difficulties affording these medications. She reports to be independent with ADLs and uses a FWW and wheelchair for DME. She has a DPOA-HC on file listing [facility], pt confirmed this as accurate. She verified her contact listed as her brother, Delfino [phone] as correct too. PT/OT Pending SW faxed clinical updates to Danielle at [facility]. Discharge Plan: tbd pending christina
--- NOTE | 2023-08-03 10:45 | NUR ---
Initial visit; Patient thanked Waste Minimization Technician for looking in on her and offering prayer and God's blessings. Patientwas receptive to Waste Minimization Technician for keeping her in her prayers and to checking on her tomorrow.
--- NOTE | 2023-08-03 12:10 | NUR ---
REPORT GIVEN TO ABIDA HILL
--- NOTE | 2023-08-03 12:51 | NUR ---
RECIEVED REPORT FROM Z. PT STABLE, ALERT AND ORIENTEDD. NO COMPLAINTS OF PAIN AT THIS TIME.
--- NOTE | 2023-08-03 22:55 | NUR ---
patient lying in bed, alert and oriented x4. denies chest pain and shortness of breath. ambulated to bathroom x1 assist with walker around 1939, steady gait noted. IV in RF is patent, site is clean dry and intact with NS running at 75 ml/hr. SCDs on at time of assessment and removed at 2229 per patient request. general small scattered bruising on extremities, excoriated blanchable bottom with small skin breakdown on inner right butt cheek, barrier cream applied. pt has no further needs, questions or concerns at this time. fall precautions in place, call light within reach. will continue to monitor.
[2023-08-04 00:58] VITALS: BP_SYST 135
[2023-08-04 03:30] VITALS: BP 126/83; PULSE 82; TEMP 97.4
[2023-08-04 03:56] VITALS: BP_SYST 126
[2023-08-04 06:41] LABS: BASO % 0.4 % (0.0-2.0); EOS # 0.2 K/mm3 (0.0-0.7); EOS % 3.5 % (0.0-4.0); GRAN # 2.3 K/mm3 (1.4-6.5); GRAN % 50.7 % (42.2-75.2); HEMOGLOBIN 12.6 g/dl (12.5-16.0); LYMPH # 1.6 K/mm3 (1.2-3.4); LYMPH % 35.7 % (20.0-51.0); MEAN CELL VOLUME 108 fl (80.0-100.0); MEAN CORPUSCULAR HEMOGLOBIN 39 pg (27-31); MEAN CORPUSCULAR HGB CONC 36 g/dl (33.0-37.0); MEAN PLATELET VOLUME 10.7 fl (7.4-10.4); MONO # 0.4 K/mm3 (0.1-0.6); MONO % 9.5 % (1.7-9.3); PLATELET COUNT 138 K/mm3 (130-400); RED BLOOD COUNT 3.25 M/mm3 (4.10-5.30); REDCELL DISTRIBUTION WIDTH-CV 12.9 % (11.5-14.5)
[2023-08-04] MEDS ORDERED: FOLIC ACID 11 MG/TA1 PO (08:20)
[2023-08-04] MEDS ORDERED: THIAMINE 1100 MG/TAB PO (08:20)
[2023-08-04] MEDS ORDERED: K-DUR20 MEQ PO (08:23)
[2023-08-04 08:30] VITALS: BP 126/83; PULSE 93; TEMP 98
[2023-08-04 09:11] VITALS: BP_SYST 126
--- NOTE | 2023-08-04 09:20 | NUR ---
Assessment complete. Discharge orders rec'd. NS d/c'd. IV site to RFA d/c'd- site reddened. Denies pain or needs at this time.
--- NOTE | 2023-08-04 12:31 | NUR ---
Patient discharged to [facility] at [facility], via w/c, with [facility] staff.
--- NOTE | 2023-08-04 12:35 | NUR ---
Report called to ABIDA Breen at [facility].
--- NOTE | 2023-08-04 13:05 | NUR ---
Tube Handler contacted Danielle at [facility] and advised patient is ready for discharge today. DEWAYNE faxed clinical updates. Danielle contacted DEWAYNE and advised their team would like patient to go skilled at [facility], however this would be private pay as patient is observation status. ABIDA No from [facility] met with patient at bedside to discuss this. DEWAYNE followed up with patient who advised she is agreeable to private pay to go skilled and that Marybel spoke with her family about it. DEWAYNE faxed SNF orders to Danielle at [facility] and transport time was set for 1130. Discharge Plan; [facility] SNF (private pay)
[2023-08-04 13:25] LABS: MAGNESIUM 2.3 mg/dL (1.6-2.6)
[2023-08-04 13:45] LABS: CALCIUM 8.7 mg/dL (8.4-10.2); CREATININE, serum 0.78 mg/dL (0.57-1.11); POTASSIUM 3.8 mEq/L (3.5-4.5)
== END 2023-08-04 11:45 ==
LOC: COL.ER 09:03 → MEDICAL 15:37
PROVIDERS: Emergency Medicine; Physician Assistant; ADMIT Internal Medicine
DX: I95.9 Hypotension, unspecified (principal); N17.9 Acute kidney failure, unspecified; R79.89 Other specified abnormal findings of blood chemistry; R74.02 Elevation of levels of lactic acid dehydrogenase [LDH]; Z66 Do not resuscitate; F10.90 Alcohol use, unspecified, uncomplicated; E87.6 Hypokalemia; E83.42 Hypomagnesemia; E44.1 Mild protein-calorie malnutrition; Z68.1 Body mass index [BMI] 19.9 or less, adult; Z91.81 History of falling
CPT/HCPCS: G0378; J3475; J7030; J7120

== ENCOUNTER → 2024-01-10 | Outpatient (REF) | payer MEDICARE, BC ==
[~2024-01-10] MED LIST changes: +MILK OF MA400 MG/52 PO
[2024-01-10 12:12] LABS: ALBUMIN 3.3 g/dL (3.4-4.8); CALCIUM 9.3 mg/dL (8.4-10.2); CREATININE, serum 1.13 mg/dL (0.57-1.11); MAGNESIUM 1.4 mg/dL (1.6-2.6); POTASSIUM 4.2 mEq/L (3.5-4.5); TOTAL PROTEIN 6.3 g/dl (6.2-8.1)
== END ==
LOC: ZCOL.LAB 10:41
PROVIDERS: Internal Medicine
DX: E87.6 Hypokalemia (principal); E83.42 Hypomagnesemia